=== PATIENT | female | born 1975 ===

== ENCOUNTER 2024-03-21 18:01 | Emergency (ER) | payer BC, SELFPAY ==
[2024-03-21 18:05] VITALS: BP 133/93; BMI 22.8
--- NOTE | 2024-03-21 19:37 | ED.GENMED ---
History of Present Illness
General
Chief Complaint: Back Pain
Source: patient
Exam Limitations: none
Time Seen by Provider: 03/21/24 19:28
Nursing documentation reviewed up to this point in time: agreed with except
History of Present Illness
History of Present Illness:
Patient to ED [facility] complaint of headache and neck pain. States she tested pos for COVID 2 weeks ago, had no symptoms. SInce then she reports worsening head pain and neck pain. Report ongoing temp of 100-101. USinb ibuprofen with some improvement.
Denies n/v/d. No chnages in vision, no dizziness. No skin rash. No prior history of same. Eating and drinking normally.Also notes increasing SOB when fever occurs. States she had a telehealth appointment with her PCP and was advised to come to
ED for eval.
Past History
Past History
ED Past Medical History: HTN and Psychiatric
ED Past Surgical History: Other (Umbilical hernia repair)
Patient has exhibited threatening behavior?: No
Social History
Tobacco: Non-smoker
Alcohol: Occasional
Drug: None
Review of Systems
Review of Systems
Allergies reviewed?: Yes
All Other Systems: ROS reviewed and negative except as documented in HPI and ROS
Constitutional: Reports no symptoms
EENT: Reports no symptoms
Respiratory: Reports trouble breathing
Cardiac: Reports no symptoms
ABD/GI: Reports no symptoms
: Reports no symptoms
Musculoskeletal: Reports neck pain
Skin: Reports no symptoms
Neurological: Reports headache
Psychiatric: Reports no symptoms
Phy Exam
General Physical Exam
General Presentation: well appearing and no apparent distress
General age: appears stated age
General Skin: warm and dry
General Habitus: normal
General Mental: alert
ENT Exam
ENT Exam: TM's normal, neck supple and normocephalic
Eye Exam
Eye Exam: PERRL, EOMI, conjunctiva normal and globe normal
Neurological Exam
Neurological Exam: alert, oriented x3, CN II-XII intact, no motor deficits, no sensory deficits, speech normal and normal gait
Mental
Mental Status: oriented to place and oriented to time
Cranial
Cranial Nerves: no facial asymetry
EOM (CN3/4/6): intact
Motor
Seizure Activity: none
Gait: normal
Tremors: none
Right upper extremity: 4
Right lower extremity: 4
Left upper extremity: 4
Left lower extremity: 4
Bilateral upper extremities: 4
Bilateral lower extremities: 4
Sensory
Sensory Exam: intact
Cerebellar
Cerebellar Function: normal finger to nose, normal heel to caraballo and normal Romberg test
Musculoskeletal Exam
Musculoskeletal Exam: full ROM and neuro vasc intact
Skin Exam
Skin Exam: normal color, warm/dry, no rash and no petechia
Psychiatric Exam
Psychiatric Exam: normal mood/affect
Course
Orders/Labs/Results
Orders:
Orders
03/21/24 19:36
Ketorolac [Toradol] 30 mg IV NOW STA
03/21/24 19:37
CT Head W/o Iv Contrast Urgent
Comment:
Reason For Exam: head pain
CR Chest - 2 Views Urgent
Comment:
Reason For Exam: SOB
03/21/24 20:14
Complete Blood Count/With Diff Urgent
03/21/24 20:39
Basic Metabolic Panel Urgent
03/21/24 21:17
Hydrocodone 5/APAP 325 [[place] 5/325] 1 tablet PO NOW STA
Abnormal Lab Results
03/21/24 03/21/24
20:14 20:39
Hct 36.4 L %
(37.0-47.0)
Absolute Neuts (auto) 7.0 H 10^3/uL
(1.4-6.5)
Sodium 130 L mmol/L
(135-145)
Carbon Dioxide 21 L mmol/L
(22-30)
03/21/24 20:14
03/21/24 20:39
Vital Signs
Initial and Last Documented VS:
Initial Vital Signs
Temp Pulse Resp BP Pulse Ox
98.3 F 88 16 133/93 100
03/21/24 18:05 03/21/24 18:05 03/21/24 18:05 03/21/24 18:05 03/21/24 18:05
Last Documented Vital Signs
Temp Pulse Resp BP Pulse Ox
98.3 F 80 18 136/83 100
03/21/24 18:05 03/21/24 21:16 03/21/24 21:16 03/21/24 21:16 03/21/24 21:16
*Radiology
Radiology exam reviewed: radiology read reviewed
*Pulse Oximetry
Patient hypoxic: no
*Critical Care Note
Total Time (30-74mins, 75-104mins- exclusive of procedures): Not Applicable
Update Note
Update Note:
Labs CT report reviewed with patient. No findings to explain her symptoms. Some improvement with IV pain meds. Will discharge home, close followup with PCP. Given instructions on s/s to return to ED and she is agreeable to plan
ED Attending Note
-
Portions of this chart may have been created with voice recognition software.� Occasional wrong word or��sound alike� substitutions may have occurred due to the inherent limitations of voice recognition software.
Discharge Plan
Departure
Patient Disposition: Home (Routine Discharge)
Date of Disposition: 03/21/24
Time of Disposition: 21:18
Patient with high blood pressure during this ER visit?: No
Condition: Good
Covid-19: Not Applicable
Discharge Problem:
Headache
Instructions: Headache, Adult ED
Prescriptions:
New
hydrocodone-acetaminophen 5-325 mg tablet
1 tab PO TID PRN (Reason: Pain) Qty: 10 0RF
Referrals:
Sherita Durán NP [Family Provider] - Tomorrow
Interventions
Interventions:
*Risk Screen - Suicide Last Done: 03/21/24 18:05
*General Assessment Last Done: 03/21/24 19:33
*Neglect/Abuse Screening Last Done: 03/21/24 18:05
ED- Fall Risk Assessment Last Done: 03/21/24 19:36
*Nursing Disposition Last Done: 03/21/24 21:23
ED-Musculoskeletal Assessment Last Done: 03/21/24 19:36
Discharge Date and Time
Discharge Date/Time: 03/21/24 21:23
Print Language: TURKISH
[2024-03-21 20:00] VITALS: BP 137/82
[2024-03-21] MEDS: TORADOL 30 MG IV (20:13)
[2024-03-21 20:21] LABS: % Basophils 0.7 % (0-2); % Eosinophils 0.4 % (0-6); % Immature Granulocytes 0.4 % (0-0.5); % Lymphocytes 21.1 % (20.5-51.1); % Monocytes 6.3 % (1.7-9.3); % Neutrophils 71.1 % (42.2-75.2); Absolute Basophils 0.1 10^3/uL (0-0.2); Absolute Lymphocytes 2.1 10^3/uL (1.2-3.4); Absolute Monocytes 0.6 10^3/uL (0.1-0.6); Hematocrit 36.4 % (37.0-47.0); Mean Corp Hgb Conc. 35.7 g/dL (33.0-37.0); Mean Corpuscular Hgb 30.2 pg (27.0-31.0); Mean Corpuscular Volume 84.7 fL (81.0-99.0); Nucleated Red Blood Cells % 0 %; Platelet Count 319 10^3/uL (130-400); Red Cell Dist. Width 12.7 % (11.5-14.5); White Blood Cell Count 9.8 10^3/uL (4.8-10.8)
[2024-03-21 21:08] LABS: Calcium 9.2 mg/dl (8.4-10.2); Carbon Dioxide 21 mmol/L (22-30); Estimated Creatinine Clearance 70 ml/min; eGFR > 60.00
[2024-03-21 21:16] VITALS: BP 136/83
[2024-03-21 21:19] LABS: Blood Urea Nitrogen 10 mg/dl (7-17); Chloride 98 mmol/L (98-107); Glucose 88 mg/dl (70-99); Sodium 130 mmol/L (135-145)
[2024-03-21] MEDS: NORCO 5/325 1 TABLET PO (21:20)
== END 2024-03-21 21:23 | disposition home or self-care (01) ==
LOC: EMR 18:01
PROVIDERS: Nurse Practitioner; EMERGENCY PHYSICIAN Student in an Organized Health Care Education/Training Program; FAMILY PHYSICIAN Nurse Practitioner Gerontology
DX: R51.9 Headache, unspecified (principal)
CPT/HCPCS: 99285; 96374; 70450; 71046; 80048; 85025